=== PATIENT | female | born 1980 | race Caucasian/White ===

== ENCOUNTER 2022-06-29 10:52 | Outpatient (CLI) | payer BC, SELFPAY ==
--- NOTE | ~2022-06-29 | US_ITS ---
EXAMINATION: US OB <=14 wk fetus w TV DATE: 06/29/2022 12:09 INDICATION: Threatened during first trimester TECHNIQUE: Real-time pelvic transabdominal and transvaginal ultrasound was performed. COMPARISON: None. FINDINGS: The uterus measures 7.3 x 4.3 x 5.2 cm. There is a questionable intrauterine gestational s ac. No normal-appearing pole is identified. The endometrial thickness measures 12 mm. The right ovary measures 1.4 x 1.4 x 1.6 cm. The left ovary measures 6.5 x 5.4 x 6.1 cm and contains a 5.7 cm cyst. There is normal vascular flow in the ovaries. There is no free fluid in the pelvis. IMPRESSION: 1. Possible intrauterine gestational sac with early or failed . If the patient is clinically stable, recommend followup with serial beta-hCG and ultrasound. 2. 5.7 cm simple cyst of the left ovary. Sonographic follow-up in 8-12 weeks is recommended. Reviewed, dictated and finalized at location L. NDER PRESS OPERATOR HELPER IMPRESSION: 1. Possible intrauterine gestational sac with early or failed . If the patient is clinically stable, recommend followup with serial beta-hCG and ultr asound. 2. 5.7 cm simple cyst of the left ovary. Sonographic follow-up in 8-12 weeks is recommended.
== END 2022-06-29 10:53 | disposition home or self-care (01) ==
PROVIDERS: PCP Nurse Practitioner Family; Visit Provider Obstetrics & Gynecology
DX: O20.0 Threatened abortion (principal); N83.202 Unspecified ovarian cyst, left side
CPT/HCPCS: 76801; 76817

== ENCOUNTER 2022-06-30 10:11 | Outpatient (CLI) | payer BC, SELFPAY ==
[2022-06-30 11:34] LABS: Beta HCG Quantitative 235.88 mIU/ML
== END 2022-06-30 10:12 | disposition home or self-care (01) ==
PROVIDERS: PCP Nurse Practitioner Family; Visit Provider Obstetrics & Gynecology
DX: O20.0 Threatened abortion (principal)
CPT/HCPCS: 36415; 84702

== ENCOUNTER 2022-07-02 09:10 | Outpatient (CLI) | payer BC, SELFPAY ==
[2022-07-02 09:33] LABS: Basophils Percent Auto 0.7 % (0.2-1.2); Eosinophils Absolute Auto 0.1 K/mm3 (0-0.3); Eosinophils Percent Auto 1.7 % (0-4.4); Hematocrit 37.4 % (37.0-47.0); Hemoglobin 11.6 g/dL (12.0-15.0); Immature Granulocyte Absolute 0.02 K/mm3 (0.00-0.031); Immature Granulocyte Percent A 0.4 % (0-0.5); Lymphocytes Absolute Auto 0.77 K/mm3 (0.9-3.2); Lymphocytes Percent Auto 14.4 % (18.3-44.2); Mean Corpuscular Hemoglobin 26.2 pg (26-34); Mean Corpuscular Volume 84.6 fl (80-100); Mean Platelet Volume 11.7 fl (7.4-10.4); Monocytes Absolute Auto 0.6 K/mm3 (0.1-0.6); Monocytes Percent Auto 10.5 % (2.6-8.5); Neutrophils Absolute Auto 3.9 K/mm3 (1.3-6.7); Neutrophils Percent Auto 72.3 % (45.5-73.1); Platelet Count Result 250 k/mm3 (150-375); Red Blood Count 4.42 M/mm3 (4.2-5.4); Red Cell Distribution Width 15.6 % (11.5-14.5); White Blood Count 5.4 K/mm3 (4.5-10.0)
[2022-07-02 10:00] LABS: Beta HCG Quantitative 235.38 mIU/ML
== END 2022-07-02 09:11 | disposition home or self-care (01) ==
LOC: ANHLAB 09:13
PROVIDERS: PCP Nurse Practitioner Family; Visit Provider Obstetrics & Gynecology
DX: O20.0 Threatened abortion (principal); R10.2 Pelvic and perineal pain
CPT/HCPCS: 36415; 84702; 85025

== ENCOUNTER 2022-07-05 12:29 | Outpatient (CLI) | payer BC, SELFPAY ==
--- NOTE | ~2022-07-05 | US_ITS ---
EXAMINATION: US OB <=14 wk fetus w TV DATE: 07/05/2022 13:38 INDICATION: Threatened TECHNIQUE: Real-time pelvic transabdominal and transvaginal ultrasound was performed. COMPARISON: 06/29/2022 FINDINGS: The uterus measures 9 x 4.7 x 4.9 cm. No intrauterine gestational sac is identified. The e ndometrial thickness measures 10 mm. The right ovary measures 1.9 x 1.3 x 2.2 cm. The left ovary ronnell ures 5. 4 x 4 by 4.5 cm and contains a 5.1 cm cyst which is slightly decreased in size since the comp arison examination. There is normal vascular flow in the ovaries. There is no free fluid in the pelvi s. IMPRESSION: 1. No intrauterine identified. Reviewed, dictated and finalized at location B. EMS ANALYST DEVELOPER
[2022-07-05 13:28] LABS: Beta HCG Quantitative 141.59 mIU/ML
== END 2022-07-05 12:30 | disposition home or self-care (01) ==
PROVIDERS: PCP Nurse Practitioner Family; Visit Provider Obstetrics & Gynecology
DX: O20.0 Threatened abortion (principal); R10.2 Pelvic and perineal pain
CPT/HCPCS: 36415; 76801; 76817; 84702

== ENCOUNTER 2022-07-09 02:36 | Day surgery (SDC) | payer BC, SELFPAY ==
[2022-07-05 15:34] VITALS: BMI 22.7
--- NOTE | 2022-07-05 15:41 | PC.NURSE ---
Report to the Outpatient Waiting Room, entrance under the green pavilion located off [facility], at time 0600 on date 07/09/22. Planned Procedure Time: 0730. Time changes happen often and if your time is changed the preop area will call you the afternoon before. - You and your visitor will be asked to self-screen and do not enter if you have any COVID symptoms. - Only one visitor is requested with a max of two and NO children visitors are allowed at this time. - The patient visitor may be requested to leave or wait in car when not with patient due to distancing restrictions. - A mask is optional within the hospital at this time. Patients may have clear liquids (water, carbonated beverages, clear teas, apple juice) until 3 hours prior to surgery with a maximum of 20 ounces. - No food from midnight until time of surgery Take the following medications with a SIP of water the morning of surgery: CITALOPRAM DO NOT STOP ANY OF YOUR OTHER PRESCRIPTION MEDICATIONS PRIOR TO SURGERY EXCEPT THE FOLLOWING Medications to discontinue per physician: VITAMIN Date to take last dose: 07/05/22 Please no make-up, nail maori, hairspray, perfume, deodorant, or body powder the day of surgery. No jewelry (including any body piercings) or valuables the day of surgery, leave them at home. Please take a shower or bath the night before, or the morning of, surgery with an antibacterial soap. Wear comfortable, loose fitting clothing. - Jewelry must be removed prior to entering the operating room. Rings and piercings that are not removed may be cut off. - The hospital will not accept responsibility for valuables. - Please leave all valuables, including medications, at home the day of surgery. If you are going home after surgery, a licensed oil transport driver must drive you home. - NO public transportation without another adult if you receive anesthesia. - We recommend that an adult stay with you for 24 hours following discharge. - We also recommend that you do not drive, make important decision, drink alcoholic beverages, or take any drugs that were not prescribed by your health care provider for at least 24 hours after your discharge time. Follow any additional instructions given to you from your surgeon. If you or anyone in your household have experienced Covid symptoms in the past week, please notify your surgeon or the nurse liaison at the phone number below for possible testing. Telephone instructions given to PT - ABBIE KRAUS and asked if any additional questions and then verbalized understanding. Patient advised to call surgeon office or pre surgery nurse liaison [phone] if any additional questions.
[2022-07-09] VITALS (9 sets, daily range): BP systolic 111–166; BP diastolic 64–99; PULSE 52–71; RESP 12–15; TEMP 36.2–36.5; O2SAT 94–100
--- NOTE | 2022-07-09 07:02 | WPDHPUPDATE1 ---
History and Physical Update Update Date/Time: 07/09/22 07:02 History and Physical has been reviewed, including an updated exam of the patient. There are NO changes in the patient's condition. Risks, benefits, and alternatives have been discussed and questions answered. Patient agrees to proceed with procedure.
--- NOTE | 2022-07-09 07:15 | P.PNAN_ITS ---
Anes - Eval Pre Procedure Procedure: Operation Date: 07/09/22 07:30 Proposed Procedures p Suction Dilation and Curettage - Rangel Ramirez MD s Laparoscopic Left Ovarian Cystectomy, Possible Bilateral Salpingectomy - Rangel Ramirez MD Date/Time: 07/09/22 07:15 Pre Op Diagnosis: Missed AB, left ovarian cyst Patient Data Age: 42 Gender: F Height: 1.66 m Weight: 63.05 kg Allergies Allergy/AdvReac Type Severity Reaction Status Date / Time egg Allergy Unknown Fever Verified 07/05/22 15:33 Corticosteroids AdvReac Unknown BLACKED Verified 07/05/22 15:33 (Glucocorticoids) OUT PER MOTHER Home Medications Medication Instructions Recorded Confirmed Type citalopram 20 mg tablet (Celexa) 20 mg PO DAILY 07/05/22 07/05/22 History multivitamin 1 tablet PO DAILY 07/05/22 07/05/22 History omeprazole 40 mg capsule,delayed 40 mg PO DAILY 07/05/22 07/05/22 History release oxycodone-acetaminophen 5 mg-325 1 tablet PO Q6H PRN pain #30 tabs 07/06/22 Rx mg tablet (Percocet) Patient hx anesthesia problems: none Family hx anesthesia problems: none Results Review: All pre-operative results and documents have been reviewed as part of the pre- operative evaluation. [facility] Past Medical History Medical History ACL (anterior cruciate ligament) tear ADHD Depression Endometriosis GERD (gastroesophageal reflux disease) IBS (irritable bowel syndrome) PTSD (post-traumatic stress disorder) Surgical History Surgical History H/O LEEP Family History Family History Mother Hypertension Grandparent Family history of congenital heart disease Family history of type 2 diabetes mellitus Social History Social History Smoking status: Never smoker Smoking end date: 05/23/10 Alcohol intake: former Substance use: current Substance use type: marijuana Living arrangements: with family Additional living arrangements comments: CHILDREN Occupation/Education: 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
[2022-07-09] MEDS: SCOPOLAMINE 1.5 MG PATCH TRANSDERM (07:20)
[2022-07-09] MEDS: ACETAMINOPHEN 500 MG TABLET 1000 MG PO (07:20)
[2022-07-09] MEDS: KETOROLAC 15 MG/ML VIAL (*BKC) IV PUSH (07:20)
[2022-07-09] MEDS: LACTATED RINGERS 1,000 ML 30 ML IV CONT ×2 (07:20→08:32)
--- NOTE | 2022-07-09 08:05 | SUR.PREOP ---
PT HAD RHOGAM GIVEN ON Tuesday07/07/22 AT [place]. SHE PROVIDED DOCUMENTATION AND A COPY WAS OBTAINED. DR ALVAREZ SAID WE DID NOT NEED TO DRAW BLOOD.
[2022-07-09] MEDS: LIDOCAINE HCL 1% LOCAL INJ 20 ML VIAL INFILTRATE (08:08)
[2022-07-09 08:21] LABS: Appearance Urine Clear (Clear); Bilirubin Urine Negative (Negative); Blood Urine Negative (Negative); Color Urine Yellow (Yellow); Glucose Urine UA Negative (Negative); Ketones Urine Negative (Negative); Leukocyte Esterase Ur Negative LEU/UL (NEGATIVE); Nitrate Urine Negative (Negative); Protein Urine Negative (Negative); Urobilinogen Urine 0.2 mg/dL (<2.0)
--- NOTE | 2022-07-09 08:23 | W.PM.PROC2 ---
Procedure Note - Detailed Date of Procedure 07/09/22 Pre-op Diagnosis 1. Missed 2. Left ovarian cyst 3. Undesired fertility Post-op Diagnosis Same Procedure Performed 1. suction curettage 2. Laparoscopic left ovarian cystectomy 3. Laparoscopic bilateral salpingectomy Surgeon Rangel Ramirez MD Anesthesia General Findings 1. Minimal products of conception noted on suction curettage 2. Laparoscopic evaluation revealed old blood in the pelvis consistent with cyst rupture as well as left ovarian cyst. Remainder of the pelvis without abnormality Description of Procedure patient was prepped in the usual manner for this procedure. Attention was 1st placed the abdomen and the trocars were placed under direct visualization with findings as noted above. Bilaterally tubes were removed without difficulty by using the Harmonic scalpel on the mesial salpinx to separate and then removed again without difficulty. Right ovary was without abnormality and the left ovary cyst and cyst wall were noted. Harmonic scalpel was used to incise over cyst and the remainder cyst wall was removed without difficulty. There was no bleeding at this point the abdominal portion of procedure was complete. Gas was allowed to escape incisions were approximated using 4-0 Monocryl after the trocars removed. Anterior lip of the cervix showing dressed with single-tooth tenaculum and the cervix was dilated to approximately 6cm. Suction curette was then performed with minimal tissue remaining. Sharp curette throughout with no remaining tissue. There was no significant bleeding at this point the procedure was considered terminated. Patient was sent to recovery room in stable condition. Estimated Blood Loss 20 Drains No Packing No Pathology Yes Complications No immediate complications Condition Stable Disposition PACU [facility] Billing Surgery - Charge Forward: Surgery Billing
[2022-07-09 09:01] LABS: Add Urine Microscopic? NO
[2022-07-09] MEDS: fentaNYL CITRATE INJ (*CRX) 100 MCG/2 ML VIAL 25 MCG IV PUSH ×3 (09:20→09:34)
[2022-07-09] MEDS: oxyCODONE HCL (*CRX) 5 MG TAB IR PO (10:09)
== END 2022-07-09 10:45 | disposition home or self-care (01) ==
PROVIDERS: PCP Nurse Practitioner Family; Visit Provider Obstetrics & Gynecology
PROC: (CPT 59820; principal; 2022-07-09 07:30)
PROC: (CPT 49320; 2022-07-09 07:30)
DX: O02.1 Missed abortion (principal); Z30.2 Encounter for sterilization; N83.12 Corpus luteum cyst of left ovary; F32.A Depression, unspecified; K21.9 Gastro-esophageal reflux disease without esophagitis; F12.90 Cannabis use, unspecified, uncomplicated; Z87.891 Personal history of nicotine dependence
CPT/HCPCS: 59820; 58662; 58661; 81003; 87086; 88302; 88305; A9270; J0330; J1100; J1885; J2250; J2405; J2704; J3010; J7030; J7120

== ENCOUNTER 2025-02-07 10:58 | Outpatient (CLI) | payer BC, SELFPAY ==
--- OUTSIDE RECORDS SUMMARY | 2025-02-07 04:15 | XMS_ITS ---
Author Organization [facility] [email or web address] Address [address] [facility] [address] [place] [address] Care Team Providers Care Mine Exploration Engineer Name Role Phone Redd Vo Unavailable [phone] Enoc Manning Unavailable [phone] REASON FOR VISIT TMS Medications Medication SIG (Take, Route, Frequency, Duration) Notes Start Date End Date Status STATUS COVID-19/FLU A-B ANTIGEN TST *Reorder from [employer] for eRx and Interaction Alerts* 08/31/2023 Not-Taking Fluconazole 150 MG Tablet Oral 08/31/2023 Not-Taking hydrOXYzine HCl 25 MG Tablet Oral 08/31/2023 Not-Taking clonazePAM 0.5 MG Tablet Oral 08/31/2023 Not-Taking Fluticasone Propionate Diskus 50 MCG/ACT Aerosol Powder Breath Activated Inhalation *Reorder from [employer] for eRx and Interaction Alerts* 08/31/2023 Not-Taking Omeprazole 40 MG Capsule Delayed Release Oral 08/31/2023 Not-Taking Trintellix 20 MG Tablet Oral 08/31/2023 Not-Taking Norethindrone 0.35 MG Tablet Oral 08/31/2023 Not-Taking Sertraline HCl 100 MG Tablet Oral 08/31/2023 Not-Taking cloNIDine HCl 0.1 MG Tablet Oral 08/31/2023 Not-Taking Vilazodone HCl 20 MG Tablet TAKE 1 TABLET BY MOUTH DAILY WITH FOOD; Duration: 30 Not-Taking Trintellix 10 MG Tablet Oral 08/31/2023 Not-Taking Amoxicillin-Pot Clavulanate 875-125 MG Tablet Oral 08/31/2023 Not-Taking Methyldopa 250 MG Tablet Oral 08/31/2023 Not-Taking Vilazodone HCl 10 MG Tablet 1 tablet with food Orally Once a day; Duration: 7 days Not-Taking Modafinil 100 MG Tablet 1 tablet in the morning Orally Once a day; Duration: 30 days 01/07/2025 Active Losartan Potassium 50 MG Tablet TAKE 1 TABLET BY MOUTH EVERY DAY IN THE MORNING Oral; Duration: 90 Days I10,Unavailable Active Modafinil 100 MG Tablet 1 tablet in the morning Orally Once a day; Duration: 30 days 01/30/2025 Active Vraylar 3 MG Capsule TAKE 1 CAPSULE BY MOUTH DAILY; Duration: 30 Active Desvenlafaxine Succinate ER 100 MG Tablet Extended Release 24 Hour 1 tablet Orally Once a day; Duration: 30 days Not-Taking Prazosin HCl 2 MG Capsule Oral 08/31/2023 Not-Taking traZODone HCl 50 MG Tablet Oral 08/31/2023 Not-Taking Desvenlafaxine Succinate ER 100 MG Tablet Extended Release 24 Hour 1 tablet Orally Once a day; Duration: 30 days 01/30/2025 Active Vraylar 3 mg Capsule 1 capsule Oral Once a day; Duration: 30 days 01/30/2025 Active Social History Sex Assigned At : Social History Observation Description Sex Assigned At Female Encounters Encounter Location Date Provider Diagnosis [facility] [employer] [place] [id number] [address] 02/07/2025 Enoc Manning Major depressive disorder, recurrent severe without psychotic features F33.2 Assessments Encounter Date Diagnosis (ICD Code) Assessment Notes Treatment Notes Treatment Clinical Notes Section Notes 02/07/2025 Major depressive disorder, recurrent severe without psychotic features (ICD-10 - F33.2) Plan Of Treatment Next Appt Details Follow Up: 2 Days, Reason: Provider Name:Enoc Manning , 02/08/2025 08:45:00 AM, [address], [address], [address], Provider Name:Redd sherman, 03/08/2025 09:30:00 AM, [address], [address], [address], History and Physical Notes * HPI (History of Present Illness) Category Sub-Category Detail Notes Category Not es Transition of Care Patient i s present today for her tms treatment as ordered by Dr. Manning. Today is treatment of 36 Progress Notes * ABBIE KRAUS ADOB:[birth year] (44 yo F)Acc No.[id number]:02/07/2025 Patient: ABBIE LOMBARDO Provider: Tony MANNING MD :1980 A ge:44 Y S ex:Female Date:02/07/2025 Address:[address] [place] [address] , [id number] Subjective: * Chief Complaints: * 1 . TMS. * HPI: T ransition of Care: Patient is present today for her tms treatment as ordered by Dr. Manning. Today is treatment of 36. * Medications: T aking Vraylar 3 MG Capsule TAKE 1 CAPSULE BY MOUTH DAILY , Taking Losartan Potassium 50 MG Tablet TAKE 1 TABLET BY MOUTH EVERY DAY IN THE MORNING Oral , Notes to Pharmacist: I10,Unavailable, Taking Modafinil 100 MG Tablet 1 tablet in the morning Orally Once a day , Taking Vraylar 3 mg Capsule 1 capsule Oral Once a day , Taking Desvenlafaxine Succinate ER 100 MG Tablet Extended Release 24 Hour 1 tablet Orally Once a day , Taking Modafinil 100 MG Tablet 1 tablet in the morning Orally Once a day , Not-Taking Desvenlafaxine Succinate ER 100 MG Tablet Extended Release 24 Hour 1 tablet Orally Once a day , Not-Taking Vilazodone HCl 10 MG Tablet 1 tablet with food Orally Once a day , Not-Taking Vilazodone HCl 20 MG Tablet TAKE 1 TABLET BY MOUTH DAILY WITH FOOD , Not-Taking Methyldopa 250 MG Tablet Oral , Not-Taking Amoxicillin-Pot Clavulanate 875-125 MG Tablet Oral , Not-Taking Trintellix 10 MG Tablet Oral , Not-Taking Omeprazole 40 MG Capsule Delayed Release Oral , Not- Taking cloNIDine HCl 0.1 MG Tablet Oral , Not-Taking Sertraline HCl 100 MG Tablet Oral , Not-Taking Norethindrone 0.35 MG Tablet Oral , Not-Taking Trintellix 20 MG Tablet Oral , Not-Taking Fluticasone Propionate Diskus 50 MCG/ACT Aerosol Powder Breath Activated Inhalation , Notes to Pharmacist: *Reorder from [facility] for eRx and Interaction Alerts*, Not-Taking Fluconazole 150 MG Tablet Oral , Not-Taking STATUS COVID-19/FLU A-B ANTIGEN TST , Notes to Pharmacist: *Reorder from [facility] for eRx and Interaction Alerts*, Not-Taking clonazePAM 0.5 MG Tablet Oral , Not-Taking hydrOXYzine HCl 25 MG Tablet Oral , Not-Taking traZODone HCl 50 MG Tablet Oral , Not-Taking Prazosin HCl 2 MG Capsule Oral Assessment: * Assessment: 1. M ajor depressive disorder, recurrent severe without psychotic features - F33.2 (Primary)? Plan: * Procedures: T reatment location following coordinate A coordinate 3, 1 Midline 1 B coordinate 9, 1 Helmet was secured by tightening chinstrap, pulled on the rear side, rear string fastening. Patient was asked to move head left to right and right to left to see if the helmet is tightly fit Administering treatment Turning the cooling system on Yes Applying that adaptation train Make sure earplugs are in place Yes At steps are fasting Double check the helmet position Yes Cooling system is on Yes Starting the treatment MT 115% and 55 Intensity. * Procedure Codes: 9 0868 THERAP REPETITIVE TMS TX SUBSEQ DELIVERY & MNG * Follow Up: 2 Days Billing Information: * Procedure Codes: 92803 THERAP REPETITIVE TMS TX SUBSEQ DELIVERY & MNG. * Sign off status: Completed true * Provider: Tony MANNING MD Date: 0 02/07/2025 Generated for Jyaa santos/Odell/Juanasmitting on: 0 02/07/2025 11:35 AM CDT
--- OUTSIDE RECORDS SUMMARY | 2025-02-07 11:35 | XMS_ITS | Encounter Summary ---
Author Organization [facility] Address [address] [place] [address] Care Team Providers Care Poultry Hatchery Man Name Role Phone Unavailable Primary Care Provider Unavailabl e Encounter Details Date Type Department Care Team (Late st Contact Info) Description 08/17/2019 Digital Self COVID-1 9 Screening [facility] ABSTRACTION Provider, Abstract NO ADDRESS ON FILE Social History Tobacco Use Types Packs/Day Years Used Date Smoking Tobacco: Never Smokeless Tobacco: Never Alcohol Use Standard Drinks/Week Comments Yes 0 (1 standard drink = 0.6 oz pur e alcohol) occ Comments Unknown Sex and Gender Information Value Date Recorded Sex Assigned at Not on file Legal Sex Female 11:04 AM CDT Gender Identity Not on file Sexual Orientation Not on file Occupation Industry Job Start Date Job End Date Not on file Not on file Not on file Not on file documented as of this encounter Plan of Treatment Not on file documented as of this encounter Visit Diagnoses Not on filedocumented in this encounter
--- OUTSIDE RECORDS SUMMARY | 2025-02-07 11:35 | XMS_ITS | Encounter Summary ---
Author Organization [facility] Address [address] [place] [address] Care Team Providers Care Cnc Service Technician Name Role Phone Unavailable Primary Care Provider [...]
--- OUTSIDE RECORDS SUMMARY | 2025-02-07 11:35 | XMS_ITS | Encounter Summary ---
Author Organization [facility] Address [address] [place] [address] Care Team Providers Care Gristmiller Name Role Phone Unavailable Primary Care Provider [...]
--- OUTSIDE RECORDS SUMMARY | 2025-02-07 11:35 | XMS_ITS | Clinical Summary ---
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 Gender Identity Not on file Sexual Orientation Not on file Plan of Treatment Health Maintenance Due Date Last Done Comments Cervical Cancer Screening Pa p Smear (Age 30 to 64) Every 3 Years 1982 Annual Physical 1985 Hepatitis C 02/20/2000 DTaP, Tdap and Td Vaccines ( 1 - Tdap) 2001 Hepatitis B Vaccines (1 of 3 - 19+ 3-dose series) 2001 HPV Vaccines (1 - 3-dose SCD M series) 2009 Cervical Cancer Screening Pa p with HPV Testing (Age 30 to 64) Every 5 Years 02/20/2012 Cervical Cancer Screening with HPV 02/20/2012 Mammogram Screening 2022 COVID-19 Vaccine ( - 2023-2 5 season) 2025 Meningococcal B Vaccine Aged Out No l onger eligible based on patient's age to complete this topic Meningococcal Vaccine Aged Out No rachel oanh eligible based on patient's age to complete this topic Pneumococcal Vaccine: Pediat rics (0 to 5 Years) and At-Risk Patients (6 to 49 Years) Aged Out No longer eligible b ased on patient's age to complete this topic RSV Immunizations Under 20 Months Aged Out No longer eligible based on patient's age to complete this topic Insurance [facility]
--- OUTSIDE RECORDS SUMMARY | 2025-02-07 11:35 | XMS_ITS | Clinical Summary ---
Author Organization [facility] Address [address] [place] [address] Care Team Providers Care Prorate Clerk Name Role Phone Danni Rabagonna Juanpablostefany SUPERVISOR PAINTING DEPARTMENT Unavailable [phone] Unknown, Notinfile Primary Care Provider Unavail able Allergies No known active allergies Medications sertraline (ZOLOFT) 100 mg tablet take 1 tablet by oral route every day 90 7 Active Additional Information Patient not taking.Reported on 12/30/2021 escitalopram (LEXAPRO) 20 mg tablet TAKE 1/2 TABLET BY MOUTH DAILY FOR 7 DAYS THEN TAKE 1 TABLET BY MOUTH DAILY 2 Active ALPRAZolam (XANAX) 0.5 mg tablet Active Vraylar 3 mg capsule capsule Take 1 capsule (3 mg total) by mouth daily 5 Active clonazePAM (KlonoPIN) 0.5 mg tablet Take 1 tablet (0.5 mg total) by mouth daily as needed Active cholecalciferol (VITAMIN D-3) 5,000 unit capsule Take 1 capsule every day by oral route. 7 Active cetirizine (ZyrTEC) 10 mg tablet Take 1 tablet every day by oral route at bedtime. 9 Active dextromethorpha n-bupropion (Auvelity) 45-105 mg tablet, IR & ER, biphasic Active lurasidone (Latuda) 20 mg tablet Active methyldopa (ALDOMET) 250 mg tablet Takes one tablet in am and one tablet in pm everyday. Active oxyCODONE-aceta minophen (PERCOCET) 5-325 mg per tablet Take by mouth every 6 (six) hours as needed Active vilazodone (VIIBRYD) 10 mg tablet TAKE 1 TABLET BY MOUTH DAILY WITH FOOD FOR 7 DAYS 4 Active vilazodone (VIIBRYD) 20 mg tablet Take 1 tablet (20 mg total) by mouth daily 5 Active traZODone (DESYREL) 50 mg tablet TAKE 1/2 TO 1 TABLET BY MOUTH AT BEDTIME NEEDED 7 Active traMADoL (ULTRAM) 50 mg tablet Take 1 tablet every 8 hours by oral route as needed. Active Active Problems Problem Noted Date Diagnosed Date Muscle pain 03/16/2017 Notalgia 03/16/2017 Lumbago 02/24/2017 Pain in joint involving pelvic region and thigh 02/24/2017 Anxiety 09/21/2016 Overview (11/02/2016): Anxiety Surgical History Surgery Date Site/Laterality Comments OTHER SURGICAL HISTORY surgically cleared out fallopian tubes LOOP ELECTROSURGICAL EXCISIO N PROCEDURE LEEP OTHER SURGICAL HISTORY surgically cleared out fallopian tubes LOOP ELECTROSURGICAL EXCISIO N PROCEDURE LEEP Family History Medical History Relation Name Comments Arthritis Mother Family history of arthritis - (Added by TW Conv) Hypertension Mother Family history of hypertension - (Added by TW Conv) Relation Name Status Comments Mother Social History Tobacco Use Types Packs/Day Years Used Date Smoking Tobacco: Never Alcohol Use Standard Drinks/Week Comments Yes 0 (1 standard drink = 0.6 oz pur e alcohol) Comments No Sex and Gender Information Value Date Recorded Sex Assigned at Not on file Legal 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 Gender Identity Female 12/12/2022 2:39 PM CDT Sexual Orientation Not on file Obstetrics History Para Term AB IAB SAB Ectopic Multiple Livin g Live Births 4 2 2 Date Outcome GA Total Labor Labor/2nd/3rd Weight Sex Type Anes PTL Marleny A1 A5 Name Clin Term Term Last Filed Vital Signs Vital Sign Reading Time Taken Comments Blood Pressure 125/87 06/22/2024 8:47 AM FINISHED HARDWARE ERECTOR Pulse 76 06/22/2024 8:47 AM FINISHED HARDWARE ERECTOR Temperature 36.8 C (98.3 F) 06/22/2024 8:47 AM FINISHED HARDWARE ERECTOR Respiratory Rate 20 06/22/2024 8:47 AM FINISHED HARDWARE ERECTOR Oxygen Saturation 99% 06/22/2024 8:47 AM FINISHED HARDWARE ERECTOR Inhaled Oxygen Concentration - - Weight 64.6 kg (142 lb 6.4 oz) 06/22/2024 8:47 A M FINISHED HARDWARE ERECTOR Height 165.1 cm (5' 5) 07/06/2022 8:56 PM FINISHED HARDWARE ERECTOR Body Mass Index 23.7 07/06/2022 8:56 PM FINISHED HARDWARE ERECTOR Plan of Treatment Health Maintenance Due Date Last Done Comments Cervical Cancer Screening 1982 Depression Screening 1982 Hepatitis C Screening 1982 Varicella Vaccines (1 of 2 - 13+ 2-dose series) 1995 Hepatitis B Screening 02/20/2000 Regular Well Visit/Exam 18-64 02/20/2000 HPV Vaccines (1 - 3-dose SCD M series) 2009 Breast Cancer Screening-Mammogram 12/14/2023 12/13/2022 Covid-19 Vaccine (4 - 2024-2 6 season) 2025 06/11/2021, 08/28/2020, 08/07/2020 Influenza Vaccine (#1) 2025 2, 01/11/2021, 06/16/2014 DTaP/Tdap/Td Vaccine (3 - Td or Tdap) 02/21/2029 02/21/2019, 08/08/2014 Pneumococcal vaccine <65 Aged Out No longer eligible based on patient's age to complete this topic Procedures Procedure Name Priority Date/Time Associated Diagnosis Comments SCREENING MAMMOGRAM BILATERAL W ACE Schedule Routine, Read Routine (OP Routine) 12/13/2022 10:53 AM CDT Screening mammogram, encounter for from Last 3 Months or Most Recently Relevant to Health Maintenance Results * (ABNORMAL) Screening Mammogram Bilateral W Ace (12/13/2022 10:53 AM CDT) Anatomical Region Laterality Modality Breast Bilateral Mammography Impressions 12/13/2022 11:38 AM CDT BI-RADS ATLAS category (overall): 0 - Incomplete: Needs Additional Imaging Evaluation 1. Further evaluation with diagnostic left mammography and possible diagnostic left breast ultrasound is recommended. 2. No mammographic evidence of malignancy in the right breast. Routine screening mammography of the right breast is recommended in 1 year. The patient has been or will be contacted. Narrative 12/13/2022 11:38 AM CDT Screening Mammogram Bilateral W Ace: 12/13/22 The study was acquired using full field digital technology and interpreted from soft copy. 2D digital mammographic views, as well as 3D digital tomosynthesis were performed in the CC and MLO projections. CLINICAL: Screening mammogram, encounter for. No relevant medical history has been documented for this patient. No known family history of breast cancer. COMPARISON: Baseline Screening Mammography. No prior mammography is available for comparison. BREAST TISSUE: The breasts are heterogeneously dense, which may obscure small masses. FINDINGS: There is a possible area of architectural distortion in the outer upper left breast. No other suspicious masses, suspicious calcifications, or other suspicious findings are seen within either breast. us Self Screening Mammogram IMG MAMMO PROCEDURES Fi nal Result from Last 3 Months or Most Recently Relevant to Health Maintenance Insurance ANTHEM ACCESS ANTHEM ACCESS Care Teams Prorate Clerk Relationship Specialty Start Date End Date Unknown, Notinfile PCP - General 06/22/24 Ashley Rabago NP [address] [place] [address] 03/09/17
--- OUTSIDE RECORDS SUMMARY | 2025-02-07 11:35 | XMS_ITS | Clinical Summary ---
Author Organization [facility] Address [address] [place] [address] Care Team Providers Care Parlor Maid Name Role Phone Rosa Ray MD Primary Care Provider [phone] Source Comments [facility],non-owned Affiliates and Associated Physician Practices is amultiple site organization consisting of ambulatory clinics and hospital sitesin [place], [place], [place] and [place]. This disclosure is being madepursuant to the Care Everywhere program and may not contain all information available regarding this patient. Last updated 18.[facility] Allergies No known active allergies Medications * Be aware that medications may not be up to date on this document. Alwaysverify current medications with the patient. lithium CR (ESKALITH CR) 450 MG tablet Take 450 mg by mouth every 12 hours Active ziprasidone (GEODON) 20 MG capsule Take 20 mg by mouth 2 times daily with morning and evening meal Active lamoTRIgine (LAMICTAL) 25 MG tablet Take 25 mg by mouth at bedtime Active Active Problems Problem Noted Date Diagnosed Date Supervision of elderly multigravida 11/20/2018 Abnormal quad screen 11/20/2018 Rh negative, antepartum 11/20/2018 History of depression 11/20/2018 History of macrosomia in inf ant in prior , currently 11/20/2018 Social History Tobacco Use Types Packs/Day Years Used Date Smoking Tobacco: Never Smokeless Tobacco: Current Tobacco Cessation:Counseling Given: No Alcohol Use Standard Drinks/Week Comments No 0 (1 standard drink = 0.6 oz pur e alcohol) Comments No Sex and Gender Information Value Date Recorded Sex Assigned at Not on file Legal Sex Female 8:55 AM DATA CONTROL CLERK Gender Identity Not on file Sexual Orientation Not on file Last Filed Vital Signs Vital Sign Reading Time Taken Comments Blood Pressure 100/60 06/27/2017 9:57 AM DATA CONTROL CLERK Pulse 74 06/27/2017 9:57 AM DATA CONTROL CLERK Temperature 36.7 C (98.1 F) 06/27/2017 9:57 AM DATA CONTROL CLERK Respiratory Rate 16 06/27/2017 9:57 AM DATA CONTROL CLERK Oxygen Saturation 99% 06/27/2017 9:57 AM DATA CONTROL CLERK Inhaled Oxygen Concentration - - Weight 64.4 kg (142 lb) 06/27/2017 9:57 AM DATA CONTROL CLERK Height 165.1 cm (5' 5) 06/27/2017 9:57 AM DATA CONTROL CLERK Body Mass Index 23.63 06/27/2017 9:57 AM DATA CONTROL CLERK Plan of Treatment Health Maintenance Due Date Last Done Comments LIPID TESTING 1982 MAMMOGRAM 1982 HIV SCREENING 1997 HEPATITIS C SCREENING 02/15/2000 DTAP/TDAP/TD VACCINES (1 - Tdap) 2001 HEPATITIS B VACCINE (1 of 3 - 19+ 3-dose series) 2001 HPV VACCINE (1 - 3-dose SCDM series) 2009 DEPRESSION SCREENING 05/23/2024 COVID-19 VACCINE (1 - 2023-2 5 season) 2025 INFLUENZA VACCINE (#1) 2025 ZOSTER VACCINE (1 of 2) 02/20/2032 HIB VACCINE Aged Out No longer eligi ble based on patient's age to complete this topic MENINGOCOCCAL (Group B) VACC INE SHARED DECISION-MAKING Aged Out No longer eligibl e based on patient's age to complete this topic MENINGOCOCCAL GROUPS A/C/Y/W VACCINE Aged Out No longer eligible b ased on patient's age to complete this topic PNEUMOCOCCAL VACCINE Aged Out No long er eligible based on patient's age to complete this topic Insurance [employer] Care Teams Parlor Maid Relationship Specialty Start Date End Date Rosa Ray MD [address] [place] [address] PCP - General Family Medicine 04/23/16
--- OUTSIDE RECORDS SUMMARY | 2025-02-07 11:35 | XMS_ITS | Clinical Summary ---
Author Organization [facility] Address [address] [place] [id number] Phone Care Team Providers Care Material Control Associate Name Role Phone Unavailable Primary Care Provider Unavailabl e Allergies No known active allergies Medications No known medications Social History Tobacco Use Types Packs/Day Years [...] file Not on file Not on file Last Filed Vital Signs Vital Sign Reading Time Taken Comments Blood Pressure 115/69 12/21/2012 12:00 PM CDT Pulse 69 12/21/2012 12:00 PM CDT Temperature 37.2 C (99 F) 12/21/2012 12:00 PM CDT Respiratory Rate 16 12/21/2012 12:00 PM CDT Oxygen Saturation 100% 12/21/2012 12:00 PM CDT Inhaled Oxygen Concentration - - Weight 67 kg (147 lb 12.8 oz) 12/20/2012 11:44 A M CDT Height 165.1 cm (5' 5) 12/12/2012 12:26 PM CDT Body Mass Index 24.6 12/12/2012 12:26 PM CDT Plan of Treatment Health Maintenance Due Date Last Done Comments DTAP/TDAP/TD VACCINES (1 - Tdap) 2001 HEPATITIS B VACCINES (1 of 3 - 19+ 3-dose series) 01/23 HPV/Cotest (21-29) 2003 HPV VACCINES (1 - 3-dose SCDM series) 2009 CERVICAL CANCER SCREENING 02/20/2012 HPV/Cotest (30-65) 02/20/2012 PAP SMEAR 02/20/2012 BREAST CANCER SCREENING 2022 INFLUENZA VACCINE (#1) 2024 Insurance BS BLUE [employer] PPO Advance Directives For more information, please contact: [phone] * Full Code (Latest Code Status on File) Date Activated Date Inactivated Comments 12/20/2012 12:34 PM 12/21/2012 5:04 PM * Full Code Date Activated Date Inactivated Comments 12/20/2012 11:45 AM 12/20/2012 12:34 PM
[2025-02-07 12:38] LABS: Thyroid Stimulating Hormone 1.310 uIU/mL (0.465-4.680)
== END 2025-02-07 10:59 | disposition home or self-care (01) ==
LOC: ANHLAB 11:01
PROVIDERS: Visit Provider Obstetrics & Gynecology
DX: E04.9 Nontoxic goiter, unspecified (principal)
CPT/HCPCS: 36415; 84436; 84443